=== PATIENT | female | born 1960 | race Caucasian/White ===

== ENCOUNTER → 2018-06-03 | Outpatient (CLI) | payer BC ==
[~2018-06-03] MED LIST: ASCO1ER PO; CALGLU500 PO; ERGO400 PO; EZET10-20 PO; HYDCHL25 PO; IBUP200 PO; LEVSOD100 PO; OMEP20ER PO
== END | disposition home or self-care (01) ==
LOC: LAB SHORT 14:02 → LAB EV 14:02
DX: L98.9 Disorder of the skin and subcutaneous tissue, unspecified (principal)
CPT/HCPCS: 36415; 82085; 82550

== ENCOUNTER → 2019-10-11 | Outpatient (CLI) | payer BC | END | disposition home or self-care (01) | LOC: PLD 11:15 → LAB SHORT 11:15 | DX: D22.5 Melanocytic nevi of trunk (principal) | CPT/HCPCS: 88305 ==

== ENCOUNTER → 2020-10-11 | Outpatient (CLI) | payer BC | LOC: PLD 08:47 → LAB SHORT 08:47 | DX: N39.0 Urinary tract infection, site not specified (principal) | CPT/HCPCS: 87077; 87086; 87186 ==

== ENCOUNTER 2021-10-06 11:00 | Inpatient (IN) | payer BC ==
[~2021-10-06] VITALS: Ht 170.2 cm; Wt 85.3 kg
[~2021-10-06 11:00] MED LIST changes: -ASPI81CH PO; -ATOR20 PO; -CLOP75 PO; -Isosorbide Mono30 MG PO; -Lisinopril2.5 MG PO; -METO25ER PO; -SPIR25 PO
[2021-10-06] MEDS ORDERED: ATOR20 PO (11:18)
[2021-10-06] MEDS ORDERED: METO25ER PO (11:19)
[2021-10-06 13:23] LABS: Anti-Xa UFH, PHA Monitoring <0.10 IU/mL; International Normalized Ratio 1.09; Prothrombin Time Results 11.4 Sec (9.7-11.5)
[2021-10-06 16:46] LABS: Influenza A, PCR NEGATIVE (NEGATIVE); Influenza B, PCR NEGATIVE (NEGATIVE); Resp Syncytial Virus, PCR NEGATIVE (NEGATIVE); SARS-Cov-2 (COVID-19) PCR, MMC NEGATIVE (NEGATIVE)
--- NOTE | 2021-10-06 17:10 | NUR ---
PT ARRIVED IN THE UNIT VIA STRETCHER DROM ED, REPORT RECEIVED FROM KALLIE CHAHAL. PT WAS ABLE TO STAND WALK AND TRANSFER TO THE BED WITH NO ISSUES. ALERT AND ORIENTED X4 AT BASELINE, INDEPENDENT. WAS ORIENTED TO THE ROOM AND UNIT. EDUCATED ABOUT THE PROPER USE OF CALL LIGHT. FRO ANGIO IN AM, NPO AT MIDNIGHT PT IS AWARE, HEP GTT STARTED AT 15U/KG/HR, COVID TEST DONE FOR PREPROCEDURE AND WAS NEGATIVE. VITALS HRR SR/SB 55-65'S, BP SYSTOLIC 120'S, SATS ABOVE 95% ON RA, AFERBILE. STILL HAS 1/10 PRESSURE IN CHEST POST CHEST PAIN RESIDUAL, TOLERABLE AT THIS TIME. NO OTHER ISSUES REPORTED, PT AWARE OF THE PLAN, ABLE TO MAKE NEEDS KNOWN, CALL LIGHTS IN REACH WILL REPORT TO ONCOMING SHIFT
--- NOTE | 2021-10-06 20:41 | NUR ---
CARE ASSUMPTION PT IS AXO X4. PT LYING IN BED W 02 SATS >92% ON RM AIR. BP WNL BUT LOWER THAN DAYSHIFT. TELE SHOWING SB LOW 55- LISINOPRIL AND LOPRESSOR HELD AT THIS TIME. PT REPORTING INTERMITTANT CHEST PRESSURE THAT IS MUCH LESS INTENSE THEN IT WAS PRIOR TO ARRIVAL. PT DENYING PAIN RADIATING ANYWHERE ELSE, NITRO PATCH ON LCW. PT DENYING ANY NEEDS AT THIS TIME. HEPARIN GTT RUNNING AND CALL LIGHT WITHIN REACH.
[2021-10-07 05:00] LABS: BASOPHILS ABSOLUTE AUTO 0.03 K/mm3 (0.00-0.23); BASOPHILS PERCENT AUTO 0 % (0-2); EOSINOPHILS ABSOLUTE AUTO 0.09 K/mm3 (0.00-0.68); EOSINOPHILS PERCENT AUTO 1 % (0-6); Hematocrit 38.7 % (33.0-51.0); Hemoglobin 12.7 g/dL (11.5-16.0); IMMATURE GRAN ABSOLUTE AUTO 0.01 K/mm3 (0.00-0.10); IMMATURE GRAN PERCENT AUTO 0 % (0-1); LYMPHOCYTES PERCENT AUTO 22 % (21-46); MONOCYTES ABSOLUTE AUTO 0.67 K/mm3 (0.16-1.47); MONOCYTES PERCENT AUTO 10 % (4-13); Mean Corpuscular HGB Conc 32.8 g/dL (31.5-36.5); Mean Corpuscular Volume 92 fL (80-100); Mean Platelet Volume 10.1 fL (9.1-12.4); NEUTROPHILS ABSOLUTE AUTO 4.59 K/mm3 (1.96-9.15); NEUTROPHILS PERCENT AUTO 67 % (41-73); Platelet Count 199 K/mm3 (150-400); RDW Standard Deviation 40.1 fL (35.1-46.3); Red Blood Cell Count 4.23 M/mm3 (3.80-5.20); White Blood Cell Count 6.89 K/mm3 (4.00-11.30)
--- NOTE | 2021-10-07 05:26 | NUR ---
ENTER[employer]ISE RESOURCE PLANNER SUMMARY PT IS AXO X4 AND USES HER CALL LIGHT TO MAKE HER NEEDS KNOWN. THE PT REPORTED INTERMTTANT CHEST PRESSURE AT THIS START OF THE SHIFT BUT REPORTS ALMOST NO CP OR PRESSURE THIS AM. PT ABLE TO AMBULATE W/O WORSENING SYMPTOMS. TELE SHOWING SB LOW 47 THIS SHIFT AND 2100 LOPRESSOR HELD DUE TO LOW HR AND SOFT BP. O2 SATS >92% ON RM AIR THIS SHIFT. PT NPO SINCE MIDNIGHT IN ANTICIPATION FOR PROCEDURE. WILL REPORT TO ONCOMING RN.
[2021-10-07 05:50] LABS: Alanine Aminotransfer (ALT/SGP 98 U/L (12-78); Albumin, Blood 3.6 g/dL (3.4-5.0); Albumin/Globulin Ratio 1.3 (0.8-1.8); Alk Phos 71 U/L (50-136); Anion Gap 6 mmol/L (6-16); Aspartate Aminotrans (AST/SGOT 46 U/L (12-37); Bilirubin, Total 0.7 mg/dL (0.1-1.0); Blood Urea Nitrogen 13 mg/dL (8-24); Bun/Creatinine Ratio 21.4 (12.0-20.0); CO2, Blood 26 mmol/L (21-32); Calcium, Blood 8.8 mg/dL (8.5-10.1); Chloride, Blood 109 mmol/L (98-108); Creatinine, Blood 0.61 mg/dL (0.40-1.00); Globulin, Blood 2.7 g/dL (2.2-4.0); Glomerular Filtration Rate >60 (60-); Glucose, Blood 121 mg/dL (70-99); Potassium, Blood 3.8 mmol/L (3.5-5.5); Sodium, Blood 141 mmol/L (136-145); Total Protein, Blood 6.3 g/dL (6.4-8.2)
--- NOTE | 2021-10-07 16:43 | NUR ---
SHIFT SUMMARY PT A&Ox4; CALM AND COOPERATIVE WITH CARE. PT RESTING IN BED DURING SHIFT. UP TO BATHROOM WITH SBA WITH POLE. PT REPORTS HEADACHE THIS AM, DENIES NEED FOR MEDICATION. PT DENIES CHEST PAIN/PRESSURE, SOB, NAUSEA AND DIZZINESS. PT TO DIGITAL PRINTER OPERATOR THIS AM; RIGHT RADIAL SITE RECOVERED PER ORDERS; SLIGHT SHADOWING AT SITE; SOFT, NONTENDER; NO BLEEDING OR HEMATOMA NOTED. PER DR CROCKER, RESTARTED HEPARIN ONCE SITE RECOVERED, NOTIFIED PHARMACY. VSS. NO OTHER ACUTE CHANGES NOTED DURING SHIFT. WILL CONTINUE TO MONITOR UNITL REPORT GIVEN TO ONCOMING RN.
--- NOTE | 2021-10-07 18:48 | NUR ---
PATIENT A&OX4, SBA OOB TO BR FOR VOIDING. PATIENT ON RA WITH SPO2 OF 94%, NO DYSPNEA WITH EXERTION. SINUS BRADYCARDIA THROUGHOUT SHIFT WITH HR RUNNING FROM HIGH 40'S TO HIGH 50'S. RIGHT RADIAL SITE FOR ANGIO WNL, TR BAND REMOVED PER PROTOCOL. HEP GTT INFUSING PER PHARM DOSING. PATIENT ON CARDIAC DIET AFTER CATH PROCEDURE. NO S/SX OF ACUTE DISTRESS, WILL CONTINUE MONITORING UNTIL REPORT GIVEN TO NOC RN.
--- NOTE | 2021-10-07 19:43 | NUR ---
CARE ASSUMPTION PT LYING IN BED DENYING ANY PAIN OR NAUSEA. HEPARIN GTT RUNNING AT ORDERED RATE. CONFIRMED W VARSHA CHAHAL. O2 SATS >90% ON RM AIR. PT DENYING ANY FURTHER NEEDS AT THIS TIME.
--- NOTE | 2021-10-08 05:56 | NUR ---
DOCK OPERATOR SUMMARY PT IS AXO X4 AND USES HER CALL LIGHT TO MAKE HER NEEDS KNOWN. PT REPORTTING THAT HER CP IS MOSTLY ALL RESOLVED W SLIGHT RESIUAL SORENESS. AGAIN THE 2100 LOPRESSOR WAS HELD DUE TO SOFT BP AND LOW HR. TELE SHOWING SB LOW 45 THIS SHIFT BUT MOSTLY IN THE MID 50'S FOR MOST OF THE SHIFT. R RADIAL SITE SHOWS NO S/S OF BLEEDING OR HEMATOMA THIS SHIFT. O2 SATS >92% ON RM AIR. WILL REPORT TO ONCOMIG TIRSO.
--- NOTE | 2021-10-08 07:19 | NUR ---
ASSUMPTION OF CARE RECEIVED REPORT FROM NOC RN. HEP GTT VERIFIED. RIGHT RADIAL SITE C/D/I, NO BRUISING, BLEEDING OR HEMATOMA NOTED; OPSITE IN PLACE WITH ARM BOARD. PT A&Ox4; CALM AND COOPERATIVE WITH CARE. EXPRESSES WISHES FOR DISCHARGE TODAY. LS CLEAR T/O, SPO2 >90% ON RA. TELE SB-SR 58-61 WITH INVERTED TWAVE, BP STABLE. NORMOACTIVE. BOWEL TONES PRESENT x4 QUAD ABD SOFT NONTENDER. PT DENIES PAIN, CHEST PAIN, SOB, NAUSEA AND DIZZINESS. NO S/Sx OF DISTRESS NOTED. VSS. NO OTHER ACUTE CHANGES. WILL CONTINUE TO MONITIOR.
[2021-10-08] MEDS ORDERED: ASPI81CH PO (10:11)
[2021-10-08] MEDS ORDERED: CLOP75 PO (10:12)
[2021-10-08] MEDS ORDERED: Lisinopril2.5 MG PO (10:12)
[2021-10-08] MEDS ORDERED: SPIR25 PO (10:13)
[2021-10-08] MEDS ORDERED: Isosorbide Mono30 MG PO (10:15)
--- NOTE | 2021-10-08 15:43 | NUR ---
DISCHARGE SUMMARY NO CHANGES T/O SHIFT. VSS. RIGHT RADIAL SITE C/D/I; NO BLEEDING, BRUISING OR HEMATOMA NOTED. CONTINUES TO DENIES PAIN, CHEST PAIN, SOB, NAUSEA AND DIZZINESS. EDUCATED PT ON NSTEMI, HEART FIALURE, STRESS INDUCED CARDIOMYOPATHY, MEDICATED, FOLLOW UP APPOINTMENTS AND RADIAL SITE HOME CARE. PRESCRIPTIONS CALLED TO [facility]. PT LEFT ROOM AT 1535 VIA WHEELCHAIRS, PT STABLE UPON DISCHARGE.
--- NOTE | 2021-10-09 08:40 | NUR ---
Per Dr. Romero discharge appropriate. Patient does not oppose discharge. Patient discharged home to residence. Date of discharge: 10/08/2021 Date of admission: 10/06/2021 Provisional diagnosis at time of admission: NSTEMI Final Diagnosis at time of discharge: NSTEMI Location/Residence: [address] [place] [address] Transportation provided by: Family/ Tam [phone] DME Ordered: None needed Follow-ups needed: [facility] will contact patient to schedule hospital follow-up visit. Reinforced need to attend follow-up with option of telehealth appointment. Patient will need a follow-up appointment with cardiology in two weeks. Confirmed numbers: Patient [phone] Provider/PCP: HENRY Chavis When: WITHIN 1 WEEK Specialty: Cardiology When: In two weeks Comment: Explained to patient to contact PCP if any questions regarding medication management, social service needs, and if condition worsens go to Urgent Care/ER. No barriers to discharge. Patient has a strong support network.
== END 2021-10-08 15:36 | disposition home or self-care (01) | DRG 281 ==
LOC: ER 11:00 → PCU 12:39
PROVIDERS: Pharmacist; ADMIT Hospitalist
PROC: 4A023N7 Measurement of Cardiac Sampling and Pressure, Left Heart, Percutaneous Approach (ICD-10-PCS; principal; 2021-10-07)
PROC: B2111ZZ Fluoroscopy of Multiple Coronary Arteries using Low Osmolar Contrast (ICD-10-PCS; 2021-10-07)
PROC: B2151ZZ Fluoroscopy of Left Heart using Low Osmolar Contrast (ICD-10-PCS; 2021-10-07)
DX: I21.4 Non-ST elevation (NSTEMI) myocardial infarction (principal); I51.81 Takotsubo syndrome; I50.20 Unspecified systolic (congestive) heart failure; Z20.822 Contact with and (suspected) exposure to COVID-19; I25.10 Atherosclerotic heart disease of native coronary artery without angina pectoris; E03.9 Hypothyroidism, unspecified; E78.5 Hyperlipidemia, unspecified; K21.9 Gastro-esophageal reflux disease without esophagitis; K75.81 Nonalcoholic steatohepatitis (NASH); I11.0 Hypertensive heart disease with heart failure; Z79.899 Other long term (current) drug therapy; Z87.891 Personal history of nicotine dependence; Z86.16 Personal history of COVID-19
CPT/HCPCS: 0241U; 36415; 71275; 76937; 80053; 83735; 84484; 85025; 85520; 85610; 85730; 93005; 93010; 93306; 93458; 99152; 99153; 99285-25; A9270; C1769; C1887; C1894; J1644; J2250; J3010; J7030; J7050; Q9967

== ENCOUNTER → 2021-10-06 | Outpatient (CLI) | payer BC ==
[~2021-10-06] MED LIST changes: +ASPI81CH PO; +ATOR20 PO; +CLOP75 PO; +Isosorbide Mono30 MG PO; +Lisinopril2.5 MG PO; +METO25ER PO; +SPIR25 PO
[2021-10-06 10:12] LABS: BASOPHILS ABSOLUTE AUTO 0.03 K/mm3 (0.00-0.23); BASOPHILS PERCENT AUTO 1 % (0-2); EOSINOPHILS ABSOLUTE AUTO 0.07 K/mm3 (0.00-0.68); EOSINOPHILS PERCENT AUTO 1 % (0-6); Hematocrit 40.1 % (33.0-51.0); Hemoglobin 13.4 g/dL (11.5-16.0); IMMATURE GRAN ABSOLUTE AUTO 0.02 K/mm3 (0.00-0.10); IMMATURE GRAN PERCENT AUTO 0 % (0-1); LYMPHOCYTES ABSOLUTE AUTO 1.49 K/mm3 (0.84-5.20); LYMPHOCYTES PERCENT AUTO 27 % (21-46); MONOCYTES ABSOLUTE AUTO 0.59 K/mm3 (0.16-1.47); MONOCYTES PERCENT AUTO 11 % (4-13); Mean Corpuscular HGB 30.8 pg (26.0-34.0); Mean Corpuscular HGB Conc 33.4 g/dL (31.5-36.5); Mean Corpuscular Volume 92 fL (80-100); Mean Platelet Volume 10.1 fL (9.1-12.4); NEUTROPHILS ABSOLUTE AUTO 3.31 K/mm3 (1.96-9.15); NEUTROPHILS PERCENT AUTO 60 % (41-73); Platelet Count 209 K/mm3 (150-400); RDW Coefficient Variation 11.9 % (11.7-14.2); RDW Standard Deviation 40.5 fL (35.1-46.3); Red Blood Cell Count 4.35 M/mm3 (3.80-5.20); White Blood Cell Count 5.51 K/mm3 (4.00-11.30)
[2021-10-06 10:54] LABS: Alanine Aminotransfer (ALT/SGP 118 U/L (12-78); Albumin, Blood 4.1 g/dL (3.4-5.0); Albumin/Globulin Ratio 1.4 (0.8-1.8); Alk Phos 81 U/L (50-136); Anion Gap 7 mmol/L (6-16); Aspartate Aminotrans (AST/SGOT 51 U/L (12-37); Bilirubin, Total 0.9 mg/dL (0.1-1.0); Blood Urea Nitrogen 14 mg/dL (8-24); Bun/Creatinine Ratio 23.8 (12.0-20.0); CO2, Blood 26 mmol/L (21-32); CPK Creatine Kinase 155 U/L (26-193); Calcium, Blood 8.9 mg/dL (8.5-10.1); Chloride, Blood 107 mmol/L (98-108); Creatinine, Blood 0.59 mg/dL (0.40-1.00); Globulin, Blood 2.9 g/dL (2.2-4.0); Glomerular Filtration Rate >60 (60-); Glucose, Blood 130 mg/dL (70-99); Potassium, Blood 3.8 mmol/L (3.5-5.5); Sodium, Blood 140 mmol/L (136-145)
[2021-10-06 10:58] LABS: Thyroid Stimulating Hormone 0.181 uIU/mL (0.360-4.800)
== END ==
LOC: LAB SHORT 10:04
PROVIDERS: General Practice
DX: R07.9 Chest pain, unspecified (principal); R53.81 Other malaise
CPT/HCPCS: 80053; 82550; 84443; 84484; 85025; 85379

== ENCOUNTER 2022-10-01 08:40 | Day surgery (SDC) | payer BC ==
[~2022-10-01] VITALS: Ht 170.2 cm; Wt 82.3 kg
[~2022-10-01 08:40] MED LIST changes: +ASPI81CH PO; +ATOR20 PO; +CLOP75 PO; +Isosorbide Mono30 MG PO; +Lisinopril2.5 MG PO; +METO25ER PO; +SPIR25 PO
--- NOTE | 2022-10-01 10:03 | NUR ---
10/01/22 1003 Christos Lima HISTORY, CHART, MEDICATIONS AND ALLERGIES REVIEWED BEFORE START OF PROCEDURE. PATIENT CONFIRMS NPO STATUS AND AGREES WITH SCHEDULED PROCEDURE. 3-LEAD EKG REVIEWED WITH PHYSICIAN PRIOR TO START OF PROCEDURE. MONITOR INTACT WITH CONTINUOUS PULSE OXIMETRY,CAPNOGRAPHY, 3-LEAD EKG, INTERMITTENT BP. SUPPLEMENTAL O2 TO BE TITRATED THROUGHOUT PROCEDURE TO MAINTAIN O2 SATURATION ABOVE 90%. PATIENT DETERMINED TO BE ASA APPROPRIATE FOR PROPOFOL SEDATION PRIOR TO START OF PROCEDURE BY DR. MARTINEZ
--- NOTE | 2022-10-01 10:59 | NUR ---
PT A&OX4, NO NAUSEA OR PAIN, VSS. PT MEETS DISCHARGE CRITERIA. PT TOLERATING PO FLUIDS. Discharge instructions reviewed with patient. Patient verbalizes understanding. Copy given to patient to take home. Discharged via wheelchair to private car for ride home.
== END 2022-10-01 11:00 | disposition home or self-care (01) ==
LOC: ORSCMMR 08:40 → ORD 09:30 → ORSCMMR 09:30
PROVIDERS: Internal Medicine Gastroenterology
PROC: 0DJD8ZZ Inspection of Lower Intestinal Tract, Via Natural or Artificial Opening Endoscopic (ICD-10-PCS; principal; 2022-10-01 09:30)
DX: Z12.11 Encounter for screening for malignant neoplasm of colon (principal); Z86.010 Personal history of colon polyps; K57.30 Diverticulosis of large intestine without perforation or abscess without bleeding; K21.9 Gastro-esophageal reflux disease without esophagitis; E03.9 Hypothyroidism, unspecified; E78.00 Pure hypercholesterolemia, unspecified; I10 Essential (primary) hypertension; Z87.891 Personal history of nicotine dependence; Z79.899 Other long term (current) drug therapy
CPT/HCPCS: J2704; J7120

== ENCOUNTER → 2024-05-20 | Outpatient (CLI) | payer BC ==
[2024-05-20 13:47] LABS: BASOPHILS ABSOLUTE AUTO 0.07 K/mm3 (0.00-0.23); BASOPHILS PERCENT AUTO 1 % (0-2); EOSINOPHILS ABSOLUTE AUTO 0.13 K/mm3 (0.00-0.68); EOSINOPHILS PERCENT AUTO 1 % (0-6); Hematocrit 42.7 % (33.0-51.0); Hemoglobin 14.4 g/dL (11.5-16.0); IMMATURE GRAN ABSOLUTE AUTO 0.04 K/mm3 (0.00-0.10); IMMATURE GRAN PERCENT AUTO 0 % (0-1); LYMPHOCYTES ABSOLUTE AUTO 1.82 K/mm3 (0.84-5.20); LYMPHOCYTES PERCENT AUTO 19 % (21-46); MONOCYTES ABSOLUTE AUTO 0.68 K/mm3 (0.16-1.47); MONOCYTES PERCENT AUTO 7 % (4-13); Mean Corpuscular HGB 30.4 pg (26.0-34.0); Mean Corpuscular HGB Conc 33.7 g/dL (31.5-36.5); Mean Corpuscular Volume 90 fL (80-100); NEUTROPHILS ABSOLUTE AUTO 6.64 K/mm3 (1.96-9.15); NEUTROPHILS PERCENT AUTO 71 % (41-73); Platelet Count 270 K/mm3 (150-400); RDW Coefficient Variation 12.7 % (11.7-14.2); Red Blood Cell Count 4.73 M/mm3 (3.80-5.20); White Blood Cell Count 9.38 K/mm3 (4.00-11.30)
[2024-05-20 13:55] LABS: Albumin, Blood 4.1 g/dL (3.4-5.0); Albumin/Globulin Ratio 1.1 (0.8-1.8); Bilirubin, Total 0.8 mg/dL (0.1-1.0); Bun/Creatinine Ratio 27.4 (12.0-20.0); Calcium, Blood 9.8 mg/dL (8.5-10.1); Creatinine, Blood 0.73 mg/dL (0.40-1.00); Globulin, Blood 3.6 g/dL (2.2-4.0); Potassium, Blood 3.6 mmol/L (3.5-5.5); Total Protein, Blood 7.7 g/dL (6.4-8.2)
== END ==
LOC: LAB 13:42 → LAB SHORT 13:42
PROVIDERS: Emergency Medicine
DX: K92.0 Hematemesis (principal)
CPT/HCPCS: 80053; 85025

== ENCOUNTER 2024-07-18 08:57 | Day surgery (SDC) | payer BC ==
[2024-07-18] VITALS (15 sets, daily range): BP systolic 85–154; BP diastolic 51–96
[~2024-07-18] VITALS: Ht 170.2 cm; Wt 79.0 kg
[~2024-07-18 08:57] MED LIST changes: +NS 1,000 ML BAG IR SCH; +NS 500 ML IV SCH
[2024-07-18] MEDS ORDERED: propofoL 40 ML IV ONE (09:18)
[2024-07-18] MEDS ORDERED: Benzocaine Oral Spray 0.5ML UD ONE (09:18)
--- NOTE | 2024-07-18 10:19 | NUR ---
07/18/24 1019 Tonio Sanatcruz CONFIRMED AND REVIEWED H&P, MEDCICATIONS, ALLERGIES, MEDICAL HISTORY, RESPIRATORY HISTORY, VITAL SIGNS, 3-LEAD EKG, CONSENTS, AND PHYSICIAN ORDERS. PATIENT CONFIRMS NPO STATUS AND AGREES WITH SCHEDULED PROCEDURE. MONITOR INTACT WITH CONTINUOUS PULSE OXIMETRY, CAPNOGRAPHY, 3-LEAD EKG, INTERMITTENT BP. SUPPLEMENTAL O2 TO BE TITRATED THROUGHOUT PROCEDURE TO MAINTAIN O2 SATURATION ABOVE 90%. PATIENT DETERMINED TO BE ASA APPROPRIATE FOR PROPOFOL SEDATION PRIOR TO START OF PROCEDURE BY DR. MARTINEZ.
--- NOTE | 2024-07-18 11:10 | NUR ---
Patient up to Ambulate independently. Gait steady. Discharge instructions reviewed with patient. Patient verbalizes understanding. Copy given to patient to take home, [facility] FAMILY. Patient States Post-Procedure ride home has been arranged. Discharged via wheelchair to private car for ride home. DENIES PAIN,N/V,SOB. READY TO GO HOME. REPORTS NORMALLY HAVING A LOW HR.
== END 2024-07-18 11:10 | disposition home or self-care (01) ==
LOC: ORSCMMR 08:57 → ORD 09:30 → ORSCMMR 09:30
PROVIDERS: Internal Medicine Gastroenterology
PROC: 0DJ08ZZ Inspection of Upper Intestinal Tract, Via Natural or Artificial Opening Endoscopic (ICD-10-PCS; principal; 2024-07-18 09:30)
PROC: 0DJD8ZZ Inspection of Lower Intestinal Tract, Via Natural or Artificial Opening Endoscopic (ICD-10-PCS; principal; 2024-07-18 09:30)
DX: K92.0 Hematemesis (principal); K21.9 Gastro-esophageal reflux disease without esophagitis; K62.5 Hemorrhage of anus and rectum; K64.8 Other hemorrhoids; K57.30 Diverticulosis of large intestine without perforation or abscess without bleeding; Z86.0101 Personal history of adenomatous and serrated colon polyps; I10 Essential (primary) hypertension; E78.00 Pure hypercholesterolemia, unspecified; E03.9 Hypothyroidism, unspecified; Z79.82 Long term (current) use of aspirin; Z79.899 Other long term (current) drug therapy
CPT/HCPCS: 88305; A9270; J2704; J7040